=== PATIENT | male | born 1985 | race Caucasian/White ===

== ENCOUNTER 2020-09-12 20:32 | Emergency (ER) | payer OTHER ==
[2020-09-12] MEDS ORDERED: Bacitracin Oint 1 GM U/D Packet TOP ONE (21:07)
[2020-09-12] MEDS ORDERED: Diphtheria,Pertussis(Acell),Tetanus Vaccine 0.5 ML Syringe IM ONE (21:07)
--- NOTE | 2020-09-12 21:27 | EDM.PDOC ---
ED HPI GENERAL MEDICAL PROBLEM - General Chief Complaint: General Stated Complaint: HOOK IN RIGHT MIDDLE FINGER Time Seen by Provider: 09/12/20 21:07 Source of Information: Reports: Patient History Limitations: Reports: No Limitations - History of Present Illness INITIAL COMMENTS - FREE TEXT/NARRATIVE: Ashwin is a 35-year-old male presenting to the ED for evaluation of a fishhook in his right middle finger. Patient was fishing [place] [employer] when he had a northern [place] on the line. He went to grab it and it jerked causing the trouble hook to latch into his pad of the right middle finger. He was able to get the northern off of the hook and snipped the additional 2 barbs prior to coming in. His last tetanus was in 2013. Patient resides in [facility] and i s not part of the [facility] program to be able to assess if there is a more current immunization so we will booster him today. - Related Data Allergies Allergy/AdvReac Type Severity Reaction Status Date / Time No Known Allergies Allergy Verified 09/12/20 21:08 Home Meds: Home Meds NK [No Known Home Meds] 09/12/20 [History] ED ROS GENERAL - Review of Systems Review Of Systems: See Below Constitutional: Reports: No Symptoms Respiratory: Reports: No Symptoms Cardiovascular: Reports: No Symptoms Musculoskeletal: Reports: Hand Pain ([place] embedded in the pad of the distal right middle finger.) Skin: Reports: Wound ([place] in the right middle finger.) Neurological: Reports: No Symptoms ED EXAM, GENERAL - Physical Exam Exam: See Below Exam Limited By: No Limitations General Appearance: Alert, No Apparent Distress Extremities: Other ([place] in the pad of the distal right middle finger. It is embedded in the subcutaneous tissue. There is no active bleeding at this time.) Foreign Body Removal - Pre-Procedure Indication: Shock embedded in the distal pad of the right middle finger. Consent Obtained: Reports: Patient Performing Doctor:: Jose Méndez - Location/Anesthesia Other (see below) Foreign Body Other Location Comment:: Right middle finger volar distal pad Anesthesia Type: Local - Post-Procedure Findings:: The fishhook which is a trouble hook was embedded in the soft tissue of the distal right middle finger. The miguelina had sunk into the adiposity of the pad. The finger is tender but there is no active bleeding. The [place] of the hook was injected with lidocaine 1% and the hook was grasped using a needle package delivery driver causing downward pressure to release the miguelina and it was retracted following the tract of the hook. There was no active bleeding after removal. The area was cleansed thoroughly with soap and water and a light coating of bacitracin was applied over which a dressing was placed. Complications:: No Course - Vital Signs Last Recorded V/S: Last Vital Signs Temp 36.4 C 09/12/20 20:46 Pulse 85 09/12/20 20:46 Resp 14 09/12/20 20:46 BP 115/72 09/12/20 20:46 Pulse Ox 99 09/12/20 20:46 - Orders/Labs/Meds Orders: Active Orders 24 hr Category Date Time Status Vaccines to be Administered [RC] PER UNIT ROUTINE Care 09/12/20 21:07 Active Meds: Medications Discontinued Medications Generic Name Dose Route Start Last Admin Trade Name Freq PRN Reason Stop Dose Admin Bacitracin 1 dose 09/12/20 21:07 09/12/20 21:20 Bacitracin Oint 1 Gm U/D Packet TOP 09/12/20 21:08 1 dose ONETIME ONE Administration Diphtheria/Tetanus/Acell Pertussis 0.5 ml 09/12/20 21:07 09/12/20 21:20 Diphtheria,Pertussis(Acell),Tetanus Vaccine 0.5 Ml Syringe IM 09/12/20 21:08 0.5 ml .ONCE ONE Administration Lidocaine HCl 5 ml 09/12/20 21:07 09/12/20 21:20 Lidocaine 1% 5 Ml Sdv INJECT 09/12/20 21:08 5 ml ONETIME ONE Administration - Re-Assessments/Exams Free Text/Narrative Re-Assessment/Exam: 09/12/20 21:30 the finger was anesthetized using lidocaine 1% and the hook was removed using a needle package delivery driver causing downward pressure to release the miguelina and with drying the hook successfully. Bacitracin was applied over the area after the skin was sterilely cleaned with soap and water and a dressing was applied over this. We will put the patient on cephalexin 500 mg 3 times daily prophylactically for the next 5 days to prevent infection as this was a slimy fish from [facility]. Indications return to the ED were discussed. The tetanus was updated as well today. Departure - Departure Time of Disposition: 21:22 Disposition: Home, Self-Care 01 Clinical Impression: Convent injury to finger Qualifiers: Encounter type: initial encounter Laterality: right Qualified Code(s): S69.91XA - Unspecified injury of right wrist, hand and finger(s), initial encounter - Discharge Information Referrals: PCP,None [Primary Care Provider] - Care Plan Goals: Successfully remove the fishhook from the pad of your right middle finger. This will likely be swollen and sore for the next day or 2. We will put you on cephalexin which is an antibiotic prescription for skin infection. Is 1 capsule 3 times a day for 5 days. Enjoy the rest of your weekend. Be careful with additional fishhooks. Enjoy the Northern. Sepsis Event Note (ED) - Focused Exam Vital Signs: Vital Signs Temp Pulse Resp BP Pulse Ox 09/12/20 20:46 36.4 C 85 14 115/72 99 - Problem List & Annotations (1) Convent injury to finger SNOMED Code(s): 14136334 Code(s): S69.90XA - UNSP INJURY OF UNSP WRIST, HAND AND FINGER(S), INIT ENCNTR Status: Acute Priority: Low Current Visit: Yes Qualifiers: Encounter type: initial encounter Laterality: right Qualified Code(s): S69.91XA - Unspecified injury of right wrist, hand and finger(s), initial encounter - Problem List Review Problem List Initiated/Reviewed/Updated: Yes - My Orders Last 24 Hours: My Active Orders 09/12/20 21:07 Vaccines to be Administered [RC] PER UNIT ROUTINE - Assessment/Plan Last 24 Hours: My Active Orders 09/12/20 21:07 Vaccines to be Administered [RC] PER UNIT ROUTINE
== END 2020-09-12 21:37 | disposition home or self-care (01) ==
LOC: JP.ED 20:32
DX: S60.453A Superficial foreign body of left middle finger, initial encounter (principal); Z23 Encounter for immunization; W45.8XXA Other foreign body or object entering through skin, initial encounter
CPT/HCPCS: 90471; 90715; 99283-25